=== PATIENT | female | born 1955 | race Caucasian/White ===

== ENCOUNTER 2020-08-13 17:32 | Emergency (ER) | payer OTHER ==
--- NOTE | 2020-08-13 18:28 | ER Document Report ---
ED Medical Screen (RME) - General Chief Complaint: Cough Stated Complaint: COUGH,DIARRHEA Time Seen by Provider: 08/13/20 18:25 TRAVEL OUTSIDE OF THE [place] IN LAST 30 DAYS: No - HPI Notes: 08/13/20 18:27 64-year-old female with a history of diabetes presents to the emergency room for complaints of shakes and diarrhea. On Sunday, August 09, 2020, she did test positive for Covid. Patient reports she has had weakness shakes, denies any chest pain shortness of breath nausea or vomiting. Denies any melena. Decreased eating but drinking without any issues. Denies any rashes. I have greeted and performed a rapid initial assessment of this patient. A comprehensive ED assessment and evaluation of the patient, analysis of test results and completion of the medical decision making process will be conducted by additional ED providers. PHYSICAL EXAMINATION: GENERAL: Well-appearing, well-nourished and in no acute distress. NECK: Normal range of motion CV: s1, s2 regular LUNGS: Diminished breath sounds in lobes The patient was evaluated during a global COVID-19 pandemic and that diagnosis was suspected/considered upon their initial presentation. Their evaluation, treatment and testing was consistent with current guidelines for patients who present with complaints or symptoms and may be related to COVID-19. - Related Data Allergies/Adverse Reactions: latex Allergy (Verified 07/04/17 23:30) morphine Allergy (Verified 07/04/17 23:30) Past Medical History Endocrine Medical History: Reports: Hx Diabetes Mellitus Type 1 Renal/ Medical History: Denies: Hx Peritoneal Dialysis Past Surgical History: Reports: Hx Bowel Surgery, Hx Orthopedic Surgery - shoulder,knee - Immunizations Hx Diphtheria, Pertussis, Tetanus Vaccination: Yes Physical Exam - Vital signs Vitals: Temp Pulse Resp BP Pulse Ox 100.1 F 103 H 20 132/75 H 93 08/13/20 17:54 08/13/20 17:54 08/13/20 17:54 08/13/20 17:54 08/13/20 17:54 Course - Vital Signs Vital signs: Temp Pulse Resp BP Pulse Ox 100.1 F 103 H 20 132/75 H 93 08/13/20 17:54 08/13/20 17:54 08/13/20 17:54 08/13/20 17:54 08/13/20 17:54
--- NOTE | 2020-08-13 19:54 | RADIOLOGY REPORT (SQ) ---
EXAM DESCRIPTION: CHEST SINGLE VIEW IMAGES COMPLETED DATE/TIME: 08/13/2020 6:34 pm REASON FOR STUDY: +COVID, cough COMPARISON: 08/09/2020 EXAM PARAMETERS: NUMBER OF VIEWS: One view. TECHNIQUE: Single frontal radiographic view of the chest acquired. RADIATION DOSE: NA LIMITATIONS: None. FINDINGS: LUNGS AND PLEURA: There is patchy opacification predominantly in the right lung. There is mild opacification in the retrocardiac area on the left. MEDIASTINUM AND HILAR STRUCTURES: No masses. Contour normal. HEART AND VASCULAR STRUCTURES: Heart normal in size. Normal vasculature. BONES: No acute findings. HARDWARE: None in the chest. OTHER: No other significant finding. IMPRESSION: Cannot exclude an early COVID-19 pneumonia. TECHNICAL DOCUMENTATION: JOB ID: [id number] 2010 [employer]- All Rights Reserved Reading location - IP/workstation name: [email or web address]
[2020-08-13 21:17] LABS: ABSOLUTE MONOCYTES (AUTO) 0.6 10^3/uL (0.1-1.4); ABSOLUTE NEUT (AUTO) 6.6 10^3/uL (1.7-8.2); BASOPHILS % (AUTO) 0.3 % (0-2); HEMATOCRIT 39.1 % (36.0-47.0); HEMOGLOBIN 13.2 g/dL (12.0-15.5); LYMPHOCYTES % (AUTO) 21.9 % (13-45); MEAN CORPUSCULAR HGB CONC 33.8 g/dL (32.0-36.0); MEAN CORPUSCULAR VOLUME 86 fl (80-97); MONOCYTES % (AUTO) 6.5 % (3-13); PLATELET COUNT 247 10^3/uL (150-450); RED BLOOD COUNT 4.55 10^6/uL (3.72-5.28); RED CELL DISTRIBUTION WIDTH 13.8 % (11.5-14.0); SEGMENTED NEUTROPHILS % (AUTO) 71.3 % (42-78); TOTAL CELLS COUNTED % (AUTO) 100 %; WHITE BLOOD COUNT 9.3 10^3/uL (4.0-10.5)
[2020-08-13 21:34] LABS: ALBUMIN 3.8 g/dL (3.5-5.0); ALKALINE PHOSPHATASE 97 U/L (38-126); ANION GAP 11 (5-19); ASPARTATE AMINO TRANSFERASE 64 U/L (14-36); BILIRUBIN,DIRECT 0.2 mg/dL (0.0-0.4); BILIRUBIN,TOTAL 0.4 mg/dL (0.2-1.3); BLOOD UREA NITROGEN 30 mg/dL (7-20); CALCIUM 9.2 mg/dL (8.4-10.2); CARBON DIOXIDE 22 mmol/L (22-30); CHLORIDE 98 mmol/L (98-107); GLUCOSE 226 mg/dL (75-110); POTASSIUM 4.8 mmol/L (3.6-5.0); TOTAL PROTEIN 7.7 g/dL (6.3-8.2)
[2020-08-13] MEDS ORDERED: NORMAL SALINE 1000 ML 1,000 ML IV ONE (21:41)
[2020-08-13] MEDS ORDERED: DEXAMETHASONE SOD PHOS INJ 10 MG/1 ML VIAL IV ONE (21:54)
[2020-08-13] MEDS ORDERED: BENZONATATE 100 MG CAPSULE PO ONE (21:55)
[2020-08-13] MEDS ORDERED: AZITHROMYCIN 250 MG TABLET PO ONE (21:55)
[2020-08-13] MEDS ORDERED: AMOXICILLIN TR/POT CLAVULANATE 875-125 MG TAB PO ONE (21:55)
--- NOTE | 2020-08-13 21:56 | ER Document Report ---
ED General - General Chief Complaint: Shortness Of Breath Stated Complaint: COUGH,DIARRHEA Time Seen by Provider: 08/13/20 18:25 Mode of Arrival: Ambulatory Information source: Patient Notes: This is a 64-year-old female presenting to the emergency department concern for cough, weakness, shakiness and persistent diarrhea. She tested positive for Covid on 08/09/2020. She denies any fever, chills chest pain, shortness of breath, nausea, vomiting. She does report a history of hypertension, diabetes and previous acute kidney injury. TRAVEL OUTSIDE OF THE [place] IN LAST 30 DAYS: No - Related Data Allergies/Adverse Reactions: latex Allergy (Verified 07/04/17 23:30) morphine Allergy (Verified 07/04/17 23:30) Past Medical History - General Information source: Patient - Social History Smoking Status: Never Smoker Chew tobacco use (# tins/day): No Frequency of alcohol use: None Drug Abuse: None Family History: Reviewed & Not Pertinent - Past Medical History Cardiac Medical History: Reports: Hx Hypertension Endocrine Medical History: Reports: Hx Diabetes Mellitus Type 1 Renal/ Medical History: Denies: Hx Peritoneal Dialysis Past Surgical History: Reports: Hx Bowel Surgery, Hx Orthopedic Surgery - shoulder,knee - Immunizations Hx Diphtheria, Pertussis, Tetanus Vaccination: Yes Review of Systems - Review of Systems -: Yes All other systems reviewed and negative - See HPI Physical Exam - Vital signs Vitals: Temp Pulse Resp BP Pulse Ox 100.1 F 103 H 20 132/75 H 93 08/13/20 17:54 08/13/20 17:54 08/13/20 17:54 08/13/20 17:54 08/13/20 17:54 - Notes Notes: PHYSICAL EXAMINATION: GENERAL: Well-appearing, well-nourished and in no acute distress. HEAD: Atraumatic, normocephalic. EYES: Pupils equal round and reactive to light, extraocular movements intact, conjunctiva are normal. ENT: Nares patent, oropharynx clear without exudates. Moist mucous membranes. NECK: Normal range of motion, supple without lymphadenopathy LUNGS: Breath sounds clear to auscultation bilaterally and equal. No wheezes rales or rhonchi. Cough noted HEART: Regular rate and rhythm without murmurs ABDOMEN: Soft, nontender, nondistended abdomen. No guarding, no rebound. No masses appreciated. Female : deferred Musculoskeletal: Normal range of motion, no pitting or edema. No cyanosis. NEUROLOGICAL: Cranial nerves grossly intact. Normal speech, normal gait. Normal sensory, motor exams PSYCH: Normal mood, normal affect. SKIN: Warm, Dry, normal turgor, no rashes or lesions noted. Course - Re-evaluation Re-evalutation: Patient appears well, nontoxic, she does have an elevated creatinine today. Please see labs. Patient does report a history of elevated creatinine in the past, she was given IV fluids here in the emergency department. She would like to try to avoid admission if possible, we will give her additional fluids and recheck a chemistry. Otherwise patient's work-up today has been reassuring. She is Covid positive. Chest x-ray does show a potential developing pneumonia. She will be started on medications for this. - Vital Signs Vital signs: Temp Pulse Resp BP Pulse Ox 98.6 F 103 H 21 H 127/63 H 94 08/14/20 02:03 08/13/20 17:54 08/14/20 02:03 08/14/20 02:03 08/13/20 22:21 - Laboratory Results Result Diagrams: 08/13/20 20:40 08/14/20 00:34 Laboratory Results Interpreted: 08/13/20 08/13/20 08/14/20 20:40 20:43 00:34 Sodium 131.0 L 132.2 L Carbon Dioxide 18 L BUN 30 H 30 H Creatinine 1.78 H 1.73 H Est GFR ( Amer) 35 L 36 L Est GFR (MDRD) Non-Af 29 L 30 L Glucose 226 H 250 H POC Glucose 214 H AST 64 H ALT 37 H Critical Laboratory Results Reviewed: No Critical Results - Radiology Results Critical Radiology Results Reviewed: No Critical Results Discharge - Discharge Clinical Impression: COVID-19, Elevated serum creatinine Pneumonia Qualifiers: Pneumonia type: due to unspecified organism Laterality: unspecified laterality Lung location: unspecified part of lung Qualified Code(s): J18.9 - Pneumonia, unspecified organism Condition: Stable Disposition: HOME, SELF-CARE Additional Instructions: If you were prescribed medications during today's visit please take them exactly as prescribed. Push fluids. Get plenty of rest. Tylenol or Motrin for fever and body aches. Good handwashing and stay away from others. Continue to follow the guidance of the health department regarding your Covid status. Return to the emergency department with any new or worsening symptoms such as difficulty breathing, or any other worsening symptoms. Prescriptions: Benzonatate [Tessalon Perles 100 mg Capsule] 1 - 2 tab PO Q8HP PRN #30 capsule PRN Reason: Amoxicillin/Potassium Clav [Augmentin 875-125 Tablet] 1 tab PO Q12 #14 tablet Azithromycin [Zithromax 250 mg Tablet] 250 mg PO DAILY #4 tablet
[2020-08-14 01:29] LABS: ANION GAP 11 (5-19); BLOOD UREA NITROGEN 30 mg/dL (7-20); CALCIUM 8.4 mg/dL (8.4-10.2); CARBON DIOXIDE 18 mmol/L (22-30); CHLORIDE 103 mmol/L (98-107); GLUCOSE 250 mg/dL (75-110); POTASSIUM 4.7 mmol/L (3.6-5.0)
[2020-08-14 02:07] VITALS: BP 127/63
== END 2020-08-14 02:11 | disposition home or self-care (01) ==
LOC: ER 17:32
DX: U07.1 COVID-19 (principal); J18.9 Pneumonia, unspecified organism; R05 Cough; R53.1 Weakness; R19.7 Diarrhea, unspecified; I10 Essential (primary) hypertension; R79.89 Other specified abnormal findings of blood chemistry; E10.9 Type 1 diabetes mellitus without complications; Z91.041 Radiographic dye allergy status; Z88.6 Allergy status to analgesic agent; Z88.5 Allergy status to narcotic agent
CPT/HCPCS: 99284; 96361; 96374; 36415; 82962; 85025; 80053; 71045; A9270 ×2; J7030; J1100; J3490

== ENCOUNTER 2020-08-19 11:59 | Inpatient (IN) | payer MEDICARE ==
[2020-08-19 14:20] LABS: ABSOLUTE BASOPHILS # (AUTO) 0.1 10^3/uL (0.0-0.2); ABSOLUTE EOSINOPHILS # (AUTO) 0.1 10^3/uL (0.0-0.6); ABSOLUTE LYMPHOCYTES (AUTO) 1.1 10^3/uL (0.5-4.7); ABSOLUTE MONOCYTES (AUTO) 0.7 10^3/uL (0.1-1.4); ABSOLUTE NEUT (AUTO) 7.2 10^3/uL (1.7-8.2); BASOPHILS % (AUTO) 0.7 % (0-2); EOSINOPHILS % (AUTO) 0.6 % (0-6); HEMATOCRIT 34.1 % (36.0-47.0); HEMOGLOBIN 11.4 g/dL (12.0-15.5); LYMPHOCYTES % (AUTO) 12.5 % (13-45); MEAN CORPUSCULAR HEMOGLOBIN 28.4 pg (27.0-33.4); MEAN CORPUSCULAR HGB CONC 33.4 g/dL (32.0-36.0); MEAN CORPUSCULAR VOLUME 85 fl (80-97); PLATELET COUNT 428 10^3/uL (150-450); RED BLOOD COUNT 4.01 10^6/uL (3.72-5.28); SEGMENTED NEUTROPHILS % (AUTO) 78.2 % (42-78); TOTAL CELLS COUNTED % (AUTO) 100 %; WHITE BLOOD COUNT 9.2 10^3/uL (4.0-10.5)
--- NOTE | 2020-08-19 14:24 | RADIOLOGY REPORT (SQ) ---
EXAM DESCRIPTION: CHEST SINGLE VIEW IMAGES COMPLETED DATE/TIME: 08/19/2020 2:14 pm REASON FOR STUDY: sob, hypoxia COMPARISON: PA view of the chest from 08/13/2020. EXAM PARAMETERS: NUMBER OF VIEWS: One view. TECHNIQUE: An AP view of the chest was obtained. RADIATION DOSE: NA LIMITATIONS: None. FINDINGS: LUNGS AND PLEURA: Increased asymmetric patchy parenchymal opacities in a peripheral distri bution. MEDIASTINUM AND HILAR STRUCTURES: No mediastinal or hilar contour abnormality. HEART AND VASCULAR STRUCTURES: The cardiac silhouette is within normal limits given the low inspirato ry lung volumes. BONES: No acute findings. HARDWARE: None in the chest. OTHER: No other finding. IMPRESSION: Increased asymmetric patchy parenchymal opacities in a peripheral distribution - correla te for a worsening multifocal pneumonia. TECHNICAL DOCUMENTATION: JOB ID: [id number] 2010 [employer]- All Rights Reserved Reading location - IP/workstation name: [email or web address]
--- NOTE | 2020-08-19 14:57 | ER Document Report ---
ED Respiratory Problem - General Chief Complaint: Shortness Of Breath Stated Complaint: SHORT OF BREATH Time Seen by Provider: 08/19/20 12:38 TRAVEL OUTSIDE OF THE [place] IN LAST 30 DAYS: No - HPI Notes: Patient is a 65-year-old female who presents with shortness of breath. Patient was in the ER on August 10 and had a positive Covid test. She returned to the ER on August 13 for worsening shortness of breath. She was given dexamethasone. She was discharged with Augmentin and Azithromycin. She states she still has several days left. Patient states that the [facility] told her that she would be cleared of Covid on August 16. Over the last several days, she has had worsening shortness of breath. She denies any chest pain. She states she has felt febrile. She had some diarrhea that resolved. No nausea or vomiting currently. She denies any loss of taste or smell. Was found to be 88% on room air in the lobby today and brought back to the room immediately. She is on 2 L nasal cannula oxygen and doing well. - Related Data Allergies/Adverse Reactions: latex Allergy (Verified 07/04/17 23:30) morphine Allergy (Verified 07/04/17 23:30) Past Medical History - General Information source: Patient - Social History Smoking Status: Never Smoker Frequency of alcohol use: None Drug Abuse: None Family History: Reviewed & Not Pertinent - Past Medical History Cardiac Medical History: Reports: Hx Hypertension Endocrine Medical History: Reports: Hx Diabetes Mellitus Type 1 Renal/ Medical History: Denies: Hx Peritoneal Dialysis Past Surgical History: Reports: Hx Bowel Surgery, Hx Orthopedic Surgery - shoulder,knee - Immunizations Hx Diphtheria, Pertussis, Tetanus Vaccination: Yes Review of Systems - Review of Systems Notes: CONSTITUTIONAL: No fever, fatigue or weight loss. SKIN: No rash. HENT: No congestion, ear pain, or sore throat. CARDIOVASCULAR: No chest pain or edema. RESPIRATORY: Positive for cough, shortness of breath. GASTROINTESTINAL: No abdominal pain, nausea, vomiting. Positive for diarrhea. MUSCULOSKELETAL: No joint pain or swelling. NEUROLOGIC: No seizures. No headache, focal weakness or sensory changes. HEMATOLOGIC: No unusual bruising or bleeding. PSYCHIATRIC: No depression or anxiety. Physical Exam - Vital signs Vitals: Temp Pulse Resp BP Pulse Ox 98.1 F 110 H 24 H 133/58 H 88 L 08/19/20 00:31 08/19/20 00:31 08/19/20 00:31 08/19/20 00:31 08/19/20 00:31 - General General appearance: Appears well Notes: VITAL SIGNS: Within normal limits on 2L of O2 nasal cannula. GENERAL: No acute distress, non-toxic appearance. HEAD: Normal with no signs of head trauma. EYES: Conjunctiva normal, no discharge. EARS: Hearing grossly intact. NECK: Normal range of motion, no tenderness, supple, no lymphadenopathy, No adenopathy, no JVD. CHEST: Clear breath sounds bilaterally. CARDIAC: Regular rate and rhythm. S1 and S2, without murmurs, gallops, or rubs. VASCULAR: No Edema. ABDOMEN: Normal and soft with no tenderness, no masses or pulsatile masses. LYMPATHTIC: No lymphadenopathy noted. MUSCULOSKELETAL: Good range of motion of all major joints. Extremities without clubbing, cyanosis or edema. NEUROLOGICAL: Alert and oriented x 3. No focal sensory or strength deficits. Speech normal. Follows commands appropriately. PSYCHIATRIC: Normal Affect, judgement and mood. SKIN: Normal appearance with no rashes or lesions. Course - Re-evaluation Re-evalutation: 08/19/20 21:33 Patient has a chest x-ray with worsening bilateral infiltrates. She is already on antibiotics. She is now on nasal cannula and doing well. I did give her dexamethasone and Rocephin. She states she already finished the azithromycin. I discussed with the hospitalist for admission. - Vital Signs Vital signs: Temp Pulse Resp BP Pulse Ox 98.4 F 83 16 127/63 H 97 08/19/20 19:49 08/19/20 20:15 08/19/20 19:49 08/19/20 19:49 08/19/20 19:49 - Laboratory Results Result Diagrams: 08/19/20 14:00 08/19/20 17:17 Laboratory Results Interpreted: 08/19/20 08/19/20 08/19/20 14:00 16:30 17:17 Hgb 11.4 L Hct 34.1 L Lymph % (Auto) 12.5 L Seg Neutrophils % 78.2 H Sodium 132.8 L BUN 23 H Est GFR ( Amer) 57 L Est GFR (MDRD) Non-Af 47 L Glucose 266 H Ferritin AST 44 H ALT 37 H C-Reactive Protein Albumin 3.2 L Urine Protein 30 H Urine Glucose (UA) >=500 H Urine Blood SMALL H 08/19/20 17:17 Hgb Hct Lymph % (Auto) Seg Neutrophils % Sodium BUN Est GFR ( Amer) Est GFR (MDRD) Non-Af Glucose Ferritin 389.00 H AST ALT C-Reactive Protein 69.1 H Albumin Urine Protein Urine Glucose (UA) Urine Blood Critical Laboratory Results Reviewed: No Critical Results - Radiology Results Critical Radiology Results Reviewed: No Critical Results - EKG Interpretation by Me EKG shows normal: Sinus rhythm Rate: Normal Rhythm: NSR When compared to previous EKG there are: No significant change Additional EKG results interpreted by me: 08/19/20 15:02 Sinus rhythm at a rate of 91. QTc 453. No acute ST changes. EKG is similar to previous. Discharge - Discharge Clinical Impression: COVID-19 Pneumonia Qualifiers: Pneumonia type: due to unspecified organism Laterality: bilateral Lung location: lower lobe of lung Qualified Code(s): J18.9 - Pneumonia, unspecified organism Acute respiratory failure Qualifiers: Respiratory failure complication: hypoxia Qualified Code(s): J96.01 - Acute respiratory failure with hypoxia Condition: Stable Disposition: ADMITTED INPATIENT Admitting Provider: Ramez (Hospitalist) Unit Admitted: [facility]
[2020-08-19] MEDS ORDERED: CEFTRIAXONE 1 GM/D5W RTU 1 GM/50 ML RTUPB IV ONE (15:01)
[2020-08-19] MEDS ORDERED: DEXAMETHASONE SOD PHOS INJ 10 MG/1 ML VIAL IV ONE (15:01)
[2020-08-19 17:07] LABS: APPEARANCE,URINE SLIGHTLY-CLOUDY; BILIRUBIN,URINE NEGATIVE (NEGATIVE); COLOR,URINE YELLOW; GLUCOSE, URINE >=500 mg/dL (NEGATIVE); KETONES,URINE NEGATIVE (NEGATIVE); LEUKOCYTE ESTERASE,URINE NEGATIVE (NEGATIVE); NITRITE,URINE NEGATIVE (NEGATIVE); PROTEIN,URINE 30 mg/dL (NEGATIVE); URINE SPECIFIC GRAVITY 1.014; UROBILINOGEN,URINE NEGATIVE mg/dL (<2.0)
--- NOTE | 2020-08-19 17:36 | EKG REPORT ---
SEVERITY:- ABNORMAL ECG - SINUS RHYTHM ABNRM R PROG, DUE TO ERROR IN LEAD PLACEMENT : Confirmed by: Bright Back MD 19-Aug-2020 17:36:22
[2020-08-19 17:43] LABS: ALBUMIN 3.2 g/dL (3.5-5.0); ALKALINE PHOSPHATASE 89 U/L (38-126); ANION GAP 10 (5-19); ASPARTATE AMINO TRANSFERASE 44 U/L (14-36); BILIRUBIN,DIRECT 0.3 mg/dL (0.0-0.4); BILIRUBIN,TOTAL 0.6 mg/dL (0.2-1.3); BLOOD UREA NITROGEN 23 mg/dL (7-20); CALCIUM 8.9 mg/dL (8.4-10.2); CARBON DIOXIDE 22 mmol/L (22-30); CHLORIDE 101 mmol/L (98-107); GLUCOSE 266 mg/dL (75-110); POTASSIUM 4.7 mmol/L (3.6-5.0); TOTAL PROTEIN 6.8 g/dL (6.3-8.2)
[2020-08-19] MEDS ORDERED: ACETAMINOPHEN 325 MG TABLET PO PRN (17:47)
[2020-08-19] MEDS ORDERED: DEXTROSE 50%-WATER 25 GM/50 ML DISP.SYRIN IV PRN ×2 (17:47)
[2020-08-19] MEDS ORDERED: DEXTROSE 40% GEL 15 GM TUBE PO PRN ×2 (17:47)
[2020-08-19] MEDS ORDERED: ONDANSETRON HCL INJ/PF 4 MG/2 ML SDV IV PRN (17:47)
[2020-08-19] MEDS ORDERED: GLUCAGON,HUMAN RECOMB 1 MG INJ IM PRN (17:47)
[2020-08-19 18:16] LABS: C-REACTIVE PROTEIN 69.1 mg/L (<10.0)
--- NOTE | 2020-08-19 18:16 | PDOC H&P ---
History of Present Illness History of Present Illness: MAUDE ZHENG is a 65 year old female who lives in [place] who is here visiting family. She has a history of [id number] diabetes mellitus, obesity, and hypertension. She initially took presented to the ER here on 09 August 2020 with a complaint of 3 days of fever, fatigue, and malaise. She was tested for coronavirus and the test was positive. She said that her daughter and grandson both had it. She was sent home on azithromycin and said it did not do her any good. She started getting short of breath a couple of days ago. She has had 2 ER visits, one on the and one on the , and was not hypoxic at either of those visits. Today when she came in complaining of shortness of breath her SPO2 was 88% on room air. She had bibasilar patchy opacities in the lung bases on chest x-ray. She had crackles on examination. On her prior visits her creatinine was elevated but it has improved today. Past Medical History Cardiac Medical History: Reports: Hypertension Endocrine Medical History: Reports: Diabetes Mellitus Type 1 Past Surgical History Past Surgical History: Reports: Orthopedic Surgery - shoulder,knee Social History Smoking Status: Never Smoker Family History Family History: Reviewed & Not Pertinent, Hypertension Parental Family History Reviewed: Yes Children Family History Reviewed: Yes Sibling(s) Family History Reviewed.: Yes Medication/Allergy Home Medications: Amox Tr/Potassium Clavulanate [Augmentin 875-125 Tablet] 1 tab PO BID #20 tablet 08/19/16 Fluticasone Propionate [Flonase Nasal Radcliffe 50 Mcg/Radcliffe 16 gm] 2 sprays NASL Q12 #1 inhaler 08/19/16 Phenylephrine HCl/Cod/Prometh [Phenergan Vc-Codeine Syrup] 5 - 10 ml PO Q4H #120 ml 08/19/16 Hydrocodone/Acetaminophen [Hydrocodon-Acetaminophen 5-325] 1 each PO Q6 #20 tablet 07/05/17 Amoxicillin/Potassium Clav [Augmentin 875-125 Tablet] 1 tab PO Q12 #14 tablet 08/14/20 Azithromycin [Zithromax 250 mg Tablet] 250 mg PO DAILY #4 tablet 08/14/20 Benzonatate [Tessalon Perles 100 mg Capsule] 1 - 2 tab PO Q8HP PRN #30 capsule 08/14/20 Allergies/Adverse Reactions: latex Allergy (Verified 07/04/17 23:30) morphine Allergy (Verified 07/04/17 23:30) Review of Systems All systems: reviewed and no additional remarkable complaints except as stated - All systems were reviewed and were negative except as noted in the HPI Physical Exam Vital Signs: Temp Pulse Resp BP Pulse Ox 98.1 F 110 H 21 H 135/69 H 95 08/19/20 00:31 08/19/20 00:31 08/19/20 15:01 08/19/20 15:01 08/19/20 15:01 Intake & Output 08/18/20 08/19/20 08/20/20 06:59 06:59 06:59 Intake Total 50 Balance 50 Weight 103 kg General appearance: PRESENT: no acute distress, cooperative, disheveled, obese Head exam: PRESENT: atraumatic, normocephalic Eye exam: PRESENT: EOMI, PERRLA. ABSENT: conjunctival injection, nystagmus, scleral icterus Ear exam: PRESENT: normal external ear exam Mouth exam: PRESENT: dry mucosa, neck supple Throat exam: ABSENT: post pharyngeal erythema Neck exam: PRESENT: full ROM. ABSENT: carotid bruit, JVD, lymphadenopathy, meningismus, tenderness, thyromegaly Respiratory exam: PRESENT: crackles, symmetrical, unlabored. ABSENT: accessory muscle use, chest wall tenderness, prolonged expiratory phas, rhonchi, tachypnea, wheezes Cardiovascular exam: PRESENT: RRR, +S1, +S2 Pulses: PRESENT: normal carotid pulses Vascular exam: PRESENT: normal capillary refill GI/Abdominal exam: PRESENT: normal bowel sounds, soft. ABSENT: distended, guarding, rebound, tenderness Extremities exam: ABSENT: clubbing, pedal edema Musculoskeletal exam: PRESENT: normal inspection. ABSENT: deformity Neurological exam: PRESENT: alert, awake, oriented to person, oriented to place, oriented to time, oriented to situation, CN II-XII grossly intact. ABSENT: motor sensory deficit Psychiatric exam: PRESENT: appropriate affect, normal mood Skin exam: PRESENT: dry, warm Results Laboratory Results: 08/19/20 14:00 08/19/20 17:17 08/19/20 08/19/20 08/19/20 14:00 14:00 16:30 WBC 9.2 RBC 4.01 Hgb 11.4 L Hct 34.1 L MCV 85 MCH 28.4 MCHC 33.4 RDW 14.0 Plt Count 428 Seg Neutrophils % 78.2 H Sodium Cancelled Potassium Cancelled Chloride Cancelled Carbon Dioxide Cancelled Anion Gap Cancelled BUN Cancelled Creatinine Cancelled Est GFR ( Amer) Cancelled Est GFR (Non-Af Amer) Cancelled Glucose Cancelled Lactic Acid Calcium Cancelled Total Bilirubin Cancelled AST Cancelled Alkaline Phosphatase Cancelled Total Protein Cancelled Albumin Cancelled Urine Color YELLOW Urine Appearance SLIGHTLY-CLOUDY Urine pH 5.0 Ur Specific Rattan 1.014 Urine Protein 30 H Urine Glucose (UA) >=500 H Urine Ketones NEGATIVE Urine Blood SMALL H Urine Nitrite NEGATIVE Ur Leukocyte Esterase NEGATIVE Urine WBC (Auto) 2 Urine RBC (Auto) 1 08/19/20 08/19/20 17:17 17:17 WBC RBC Hgb Hct MCV MCH MCHC RDW Plt Count Seg Neutrophils % Sodium 132.8 L Potassium 4.7 Chloride 101 Carbon Dioxide 22 Anion Gap 10 BUN 23 H Creatinine 1.17 Est GFR ( Amer) 57 L Est GFR (Non-Af Amer) Glucose 266 H Lactic Acid 1.2 Calcium 8.9 Total Bilirubin 0.6 AST 44 H Alkaline Phosphatase 89 Total Protein 6.8 Albumin 3.2 L Urine Color Urine Appearance Urine pH Ur Specific Rattan Urine Protein Urine Glucose (UA) Urine Ketones Urine Blood Urine Nitrite Ur Leukocyte Esterase Urine WBC (Auto) Urine RBC (Auto) 08/19/20 08/19/20 14:00 17:17 Troponin I Cancelled < 0.012 Impressions: Chest X-Ray 08/19/20 13:53 IMPRESSION: Increased asymmetric patchy parenchymal opacities in a peripheral distribution - correlate for a worsening multifocal pneumonia. Assessment and Plan - Diagnosis (1) Acute hypoxemic respiratory failure Is this a current diagnosis for this admission?: Yes (2) Pneumonia due to COVID-19 virus Is this a current diagnosis for this admission?: Yes (3) Type 2 diabetes mellitus Qualifiers: Diabetes mellitus half-way insulin use: without half-way use Diabetes mellitus complication status: without complication Qualified Code(s): E11.9 - Type 2 diabetes mellitus without complications Is this a current diagnosis for this admission?: Yes (4) Hypertension Qualifiers: Hypertension type: essential hypertension Qualified Code(s): I10 - Essential (primary) hypertension Is this a current diagnosis for this admission?: Yes (5) Obesity (BMI 30-39.9) Is this a current diagnosis for this admission?: Yes - Plan Summary Summary: Patient has been sick now for 14 or 15 days. She is past the point at which rem desivir could help her. We will treat her with the MATH+ protocol, which consists of IV Solu-Medrol, ivermectin, vitamin B complex, vitamin C, vitamin D3, zinc, melatonin, and doxycycline. Currently stable on 2 L per nasal cannula. Will titrate oxygen to maintain SPO2 greater than 90%, and we were able to wean as tolerated. We will cover her with a sliding scale for now. She had previously had an acute kidney injury but this seems like it has resolved prior to admission. We will hold her antihypertensives for now, and will reinstitute once we are sure her blood pressure will tolerate it. - Time Time Spent with patient: 35 or more minutes Anticipated Discharge Disposition: Unknown Anticipated Discharge Timeframe: Unknown - Inpatient Certification Based on my medical assessment, after consideration of the patient's comorbidities, presenting symptoms, or acuity I expect that the services needed warrant INPATIENT care.: Yes I certify that my determination is in accordance with my understanding of Medicare's requirements for reasonable and necessary INPATIENT services [42 CFR 412.3e].: Yes Medical Necessity: Failure to Improve With Outpatient Therapy, Significant Comorbidiites Make Outpatient Treatment Too Risky, Need Close Monitoring Due to Risk of Patient Decompensation, Need For Continuous Telemetry Monitoring, Need for IV Antibiotics, Risk of Complication if Not Cared For in Hospital
[2020-08-19] MEDS: ASCORBIC ACID 500 MG TABLET PO SCH (18:28)
[2020-08-19] MEDS: NORMAL SALINE 1000 ML 1,000 ML IV PRN (18:29)
[2020-08-19] MEDS ORDERED: IVERMECTIN 3 MG TABLET PO ONE (18:30)
[2020-08-19] MEDS: INSULIN LISPRO 100 UNIT/ML 3 ML VIAL SUBCUT SCH (22:19)
[2020-08-19] MEDS: HEPARIN SOD (PORCINE) 5,000 UNIT/ML 1 ML VIAL SUBCUT SCH (22:19)
[2020-08-19] MEDS: METHYLPREDNISOLONE INJ 40 MG/1 ML SDV IV SCH (22:20)
[2020-08-19] MEDS: MELATONIN 5 MG TABLET PO SCH (22:20)
[2020-08-19] MEDS: DOXYCYCLINE HYCLATE 100 MG in DEXTROSE 5%-WATER 250 ML IV SCH (22:21)
[2020-08-20] MEDS: ASCORBIC ACID 500 MG TABLET PO SCH ×5 (00:49→23:49)
[2020-08-20] MEDS: HEPARIN SOD (PORCINE) 5,000 UNIT/ML 1 ML VIAL SUBCUT SCH ×3 (05:03→21:42)
[2020-08-20] MEDS: NORMAL SALINE 1000 ML 1,000 ML IV PRN ×2 (06:28→21:43)
[2020-08-20 06:48] LABS: ABSOLUTE LYMPHOCYTES (AUTO) 0.8 10^3/uL (0.5-4.7); ABSOLUTE MONOCYTES (AUTO) 0.2 10^3/uL (0.1-1.4); BASOPHILS % (AUTO) 0.2 % (0-2); HEMATOCRIT 35.4 % (36.0-47.0); HEMOGLOBIN 11.7 g/dL (12.0-15.5); LYMPHOCYTES % (AUTO) 13.8 % (13-45); MEAN CORPUSCULAR HEMOGLOBIN 28.1 pg (27.0-33.4); MEAN CORPUSCULAR HGB CONC 33.1 g/dL (32.0-36.0); MEAN CORPUSCULAR VOLUME 85 fl (80-97); MONOCYTES % (AUTO) 3.1 % (3-13); PLATELET COUNT 407 10^3/uL (150-450); RED BLOOD COUNT 4.18 10^6/uL (3.72-5.28); RED CELL DISTRIBUTION WIDTH 13.8 % (11.5-14.0); SEGMENTED NEUTROPHILS % (AUTO) 82.9 % (42-78); TOTAL CELLS COUNTED % (AUTO) 100 %
[2020-08-20 07:15] LABS: ALBUMIN 3.2 g/dL (3.5-5.0); ALKALINE PHOSPHATASE 92 U/L (38-126); ANION GAP 13 (5-19); ASPARTATE AMINO TRANSFERASE 29 U/L (14-36); BILIRUBIN,DIRECT 0.4 mg/dL (0.0-0.4); BILIRUBIN,TOTAL 0.5 mg/dL (0.2-1.3); BLOOD UREA NITROGEN 27 mg/dL (7-20); CALCIUM 9.5 mg/dL (8.4-10.2); CARBON DIOXIDE 20 mmol/L (22-30); CHLORIDE 102 mmol/L (98-107); GLUCOSE 335 mg/dL (75-110); TOTAL PROTEIN 6.9 g/dL (6.3-8.2)
[2020-08-20 07:25] LABS: C-REACTIVE PROTEIN 55.8 mg/L (<10.0)
[2020-08-20 08:20] LABS: POTASSIUM 5.6 mmol/L (3.6-5.0)
[2020-08-20] MEDS: INSULIN LISPRO 100 UNIT/ML 3 ML VIAL SUBCUT SCH ×6 (08:45→21:43)
[2020-08-20] MEDS: CHOLECALCIFEROL (D3) 1,000 UNIT (25 MCG) TABLET PO SCH (10:31)
[2020-08-20] MEDS: ZINC SULFATE 220 MG CAPSULE PO SCH (10:31)
[2020-08-20] MEDS: DOXYCYCLINE HYCLATE 100 MG in DEXTROSE 5%-WATER 250 ML IV SCH ×2 (10:31→21:41)
[2020-08-20] MEDS: VITAMIN B COMPLEX TABLET PO SCH (10:31)
[2020-08-20] MEDS: METHYLPREDNISOLONE INJ 40 MG/1 ML SDV IV SCH ×2 (10:31→21:42)
--- NOTE | 2020-08-20 15:12 | PDOC PROGRESS REPORT ---
Subjective Date:: 08/20/20 Subjective:: No adverse events overnight. Still on 2 L, but she says her breathing feels a l ot better. Blood sugars have been elevated as anticipated. Reason For Visit: ACUTE HYPOXIC RESPIRATORY FAILURE, COVID-19 Physical Exam Vital Signs: Temp Pulse Resp BP Pulse Ox 97.4 F 86 17 125/64 94 08/20/20 11:32 08/20/20 11:32 08/20/20 11:32 08/20/20 11:32 08/20/20 11:32 Intake & Output 08/19/20 08/20/20 08/21/20 06:59 06:59 06:59 Intake Total 1719 Output Total 550 Balance 1169 Weight 103 kg 97.2 kg General appearance: PRESENT: no acute distress, cooperative, disheveled, obese Respiratory exam: PRESENT: crackles, symmetrical, unlabored. ABSENT: accessory muscle use, chest wall tenderness, prolonged expiratory phas, rhonchi, tachypnea, wheezes Cardiovascular exam: PRESENT: RRR, +S1, +S2 Pulses: PRESENT: normal carotid pulses Vascular exam: PRESENT: normal capillary refill GI/Abdominal exam: PRESENT: normal bowel sounds, soft. ABSENT: distended, guarding, rebound, tenderness Extremities exam: ABSENT: clubbing, pedal edema Musculoskeletal exam: PRESENT: normal inspection. ABSENT: deformity Neurological exam: PRESENT: alert, awake, oriented to person, oriented to place, oriented to time, oriented to situation Psychiatric exam: PRESENT: appropriate affect, normal mood Skin exam: PRESENT: dry, warm Results Laboratory Results: 08/20/20 05:31 08/20/20 05:31 08/19/20 08/19/20 08/19/20 16:30 17:17 17:17 WBC RBC Hgb Hct MCV MCH MCHC RDW Plt Count Seg Neutrophils % Sodium 132.8 L Potassium 4.7 Chloride 101 Carbon Dioxide 22 Anion Gap 10 BUN 23 H Creatinine 1.17 Est GFR ( Amer) 57 L Glucose 266 H Lactic Acid 1.2 Calcium 8.9 Ferritin Total Bilirubin 0.6 AST 44 H Alkaline Phosphatase 89 C-Reactive Protein Total Protein 6.8 Albumin 3.2 L Urine Color YELLOW Urine Appearance SLIGHTLY-CLOUDY Urine pH 5.0 Ur Specific [place] 1.014 Urine Protein 30 H Urine Glucose (UA) >=500 H Urine Ketones NEGATIVE Urine Blood SMALL H Urine Nitrite NEGATIVE Ur Leukocyte Esterase NEGATIVE Urine WBC (Auto) 2 Urine RBC (Auto) 1 08/19/20 08/20/20 08/20/20 17:17 05:31 05:31 WBC 6.0 RBC 4.18 Hgb 11.7 L Hct 35.4 L MCV 85 MCH 28.1 MCHC 33.1 RDW 13.8 Plt Count 407 Seg Neutrophils % 82.9 H Sodium 134.6 L Potassium 5.6 H Chloride 102 Carbon Dioxide 20 L Anion Gap 13 BUN 27 H Creatinine 1.23 Est GFR ( Amer) 53 L Glucose 335 H Lactic Acid Calcium 9.5 Ferritin 389.00 H 352.00 H Total Bilirubin 0.5 AST 29 Alkaline Phosphatase 92 C-Reactive Protein 69.1 H 55.8 H Total Protein 6.9 Albumin 3.2 L Urine Color Urine Appearance Urine pH Ur Specific [place] Urine Protein Urine Glucose (UA) Urine Ketones Urine Blood Urine Nitrite Ur Leukocyte Esterase Urine WBC (Auto) Urine RBC (Auto) 08/19/20 08/19/20 14:00 17:17 Troponin I Cancelled < 0.012 Impressions: Chest X-Ray 08/19/20 13:53 IMPRESSION: Increased asymmetric patchy parenchymal opacities in a peripheral distribution - correlate for a worsening multifocal pneumonia. Assessment and Plan - Diagnosis (1) Acute hypoxemic respiratory failure Is this a current diagnosis for this admission?: Yes (2) Pneumonia due to COVID-19 virus Is this a current diagnosis for this admission?: Yes (3) Type 2 diabetes mellitus Qualifiers: Diabetes mellitus long filler cigar roller machine insulin use: without long filler cigar roller machine use Diabetes mellitus complication status: without complication Qualified Code(s): E11.9 - Type 2 diabetes mellitus without complications Is this a current diagnosis for this admission?: Yes (4) Hypertension Qualifiers: Hypertension type: essential hypertension Qualified Code(s): I10 - Essential (primary) hypertension Is this a current diagnosis for this admission?: Yes (5) Obesity (BMI 30-39.9) Is this a current diagnosis for this admission?: Yes - Plan Summary Summary: We will treat her with the MATH+ protocol, which consists of IV Solu-Medrol, ivermectin, vitamin B complex, vitamin C, vitamin D3, zinc, melatonin, and doxycycline. Currently stable on 2 L per nasal cannula. Will titrate oxygen to maintain SPO2 greater than 90%, then wean as tolerated. I have added a fixed bolus premeal to her sliding scale. I will likely have to increase it further. Blood pressures have been very good without the need to start her home antihypertensives. - Time Time Spent with patient: 15-24 minutes Anticipated Discharge Disposition: Home, Self Care Anticipated Discharge Timeframe: within 72 hours
[2020-08-20] MEDS ORDERED: INSULIN LISPRO 100 UNIT/ML 3 ML VIAL SUBCUT ONE (17:00)
[2020-08-20] MEDS: MELATONIN 5 MG TABLET PO SCH (21:43)
[2020-08-21 06:37] LABS: ABSOLUTE LYMPHOCYTES (AUTO) 1.2 10^3/uL (0.5-4.7); ABSOLUTE MONOCYTES (AUTO) 0.3 10^3/uL (0.1-1.4); ABSOLUTE NEUT (AUTO) 10.5 10^3/uL (1.7-8.2); BASOPHILS % (AUTO) 0.1 % (0-2); HEMATOCRIT 33.8 % (36.0-47.0); LYMPHOCYTES % (AUTO) 9.8 % (13-45); MEAN CORPUSCULAR HEMOGLOBIN 27.8 pg (27.0-33.4); MEAN CORPUSCULAR HGB CONC 32.6 g/dL (32.0-36.0); MEAN CORPUSCULAR VOLUME 85 fl (80-97); MONOCYTES % (AUTO) 2.9 % (3-13); PLATELET COUNT 447 10^3/uL (150-450); RED BLOOD COUNT 3.97 10^6/uL (3.72-5.28); RED CELL DISTRIBUTION WIDTH 13.7 % (11.5-14.0); SEGMENTED NEUTROPHILS % (AUTO) 87.2 % (42-78); TOTAL CELLS COUNTED % (AUTO) 100 %
[2020-08-21] MEDS: HEPARIN SOD (PORCINE) 5,000 UNIT/ML 1 ML VIAL SUBCUT SCH ×3 (06:39→22:19)
[2020-08-21] MEDS: ASCORBIC ACID 500 MG TABLET PO SCH ×4 (06:40→23:28)
[2020-08-21 06:43] LABS: WHITE BLOOD COUNT 12.1 10^3/uL (4.0-10.5)
[2020-08-21 06:56] LABS: ALKALINE PHOSPHATASE 80 U/L (38-126); ANION GAP 9 (5-19); ASPARTATE AMINO TRANSFERASE 40 U/L (14-36); BILIRUBIN,DIRECT 0.4 mg/dL (0.0-0.4); BILIRUBIN,TOTAL 0.5 mg/dL (0.2-1.3); BLOOD UREA NITROGEN 34 mg/dL (7-20); C-REACTIVE PROTEIN 31.8 mg/L (<10.0); CALCIUM 9.5 mg/dL (8.4-10.2); CARBON DIOXIDE 20 mmol/L (22-30); CHLORIDE 105 mmol/L (98-107); GLUCOSE 319 mg/dL (75-110); TOTAL PROTEIN 6.6 g/dL (6.3-8.2)
[2020-08-21 07:02] LABS: POTASSIUM 6.1 mmol/L (3.6-5.0)
[2020-08-21] MEDS: METHYLPREDNISOLONE INJ 40 MG/1 ML SDV IV SCH (09:59)
[2020-08-21] MEDS: CHOLECALCIFEROL (D3) 1,000 UNIT (25 MCG) TABLET PO SCH (09:59)
[2020-08-21] MEDS: ZINC SULFATE 220 MG CAPSULE PO SCH (09:59)
[2020-08-21] MEDS: VITAMIN B COMPLEX TABLET PO SCH (10:00)
[2020-08-21] MEDS: INSULIN LISPRO 100 UNIT/ML 3 ML VIAL SUBCUT SCH ×7 (10:00→22:20)
[2020-08-21] MEDS ORDERED: IVERMECTIN 3 MG TABLET PO ONE (10:00)
[2020-08-21] MEDS: DOXYCYCLINE HYCLATE 100 MG in DEXTROSE 5%-WATER 250 ML IV SCH ×2 (10:01→22:21)
--- NOTE | 2020-08-21 15:01 | PDOC PROGRESS REPORT ---
Subjective Date:: 08/21/20 Subjective:: No adverse events overnight. No new complaints. She is on room air and her oxy genation shows an SPO2 in the upper 90s. She feels very comfortable. She has been getting up and moving about the room without any trouble. Blood sugars have remained difficult to control, and her potassium has been climbing. Reason For Visit: ACUTE HYPOXIC RESPIRATORY FAILURE, COVID-19 Physical Exam Vital Signs: Temp Pulse Resp BP Pulse Ox 98.2 F 74 17 120/61 94 08/21/20 11:15 08/21/20 11:15 08/21/20 11:15 08/21/20 11:15 08/21/20 11:15 Intake & Output 08/20/20 08/21/20 08/22/20 06:59 06:59 06:59 Intake Total 1719 2126 475 Output Total 550 501 Balance 1169 1625 475 Weight 97.2 kg 95.1 kg General appearance: PRESENT: no acute distress, cooperative, disheveled, obese Respiratory exam: PRESENT: Clear to auscultation bilaterally, symmetrical, unlabored. ABSENT: accessory muscle use, chest wall tenderness, prolonged expiratory phas, rhonchi, tachypnea, wheezes Cardiovascular exam: PRESENT: RRR, +S1, +S2 Pulses: PRESENT: normal carotid pulses Vascular exam: PRESENT: normal capillary refill GI/Abdominal exam: PRESENT: normal bowel sounds, soft. ABSENT: distended, guarding, rebound, tenderness Extremities exam: ABSENT: clubbing, pedal edema Musculoskeletal exam: PRESENT: normal inspection. ABSENT: deformity Neurological exam: PRESENT: alert, awake, oriented to person, oriented to place, oriented to time, oriented to situation Psychiatric exam: PRESENT: appropriate affect, normal mood Skin exam: PRESENT: dry, warm Results Laboratory Results: 08/21/20 05:49 08/21/20 05:49 08/21/20 08/21/20 05:49 05:49 WBC 12.1 H D RBC 3.97 Hgb 11.0 L Hct 33.8 L MCV 85 MCH 27.8 MCHC 32.6 RDW 13.7 Plt Count 447 Seg Neutrophils % 87.2 H Sodium 134.4 L Potassium 6.1 H* Chloride 105 Carbon Dioxide 20 L Anion Gap 9 BUN 34 H Creatinine 1.26 H Est GFR ( Amer) 52 L Glucose 319 H Calcium 9.5 Ferritin 282.00 H Total Bilirubin 0.5 AST 40 H Alkaline Phosphatase 80 C-Reactive Protein 31.8 H Total Protein 6.6 Albumin 3.0 L 08/19/20 14:00 Throat Throat Culture - Final NORMAL ESTUARDO 08/19/20 08/19/20 14:00 17:17 Troponin I Cancelled < 0.012 Impressions: Chest X-Ray 08/19/20 13:53 IMPRESSION: Increased asymmetric patchy parenchymal opacities in a peripheral distribution - correlate for a worsening multifocal pneumonia. Assessment and Plan - Diagnosis (1) Acute hypoxemic respiratory failure Is this a current diagnosis for this admission?: Yes (2) Pneumonia due to COVID-19 virus Is this a current diagnosis for this admission?: Yes (3) Type 2 diabetes mellitus Qualifiers: Diabetes mellitus exterminator termite insulin use: without exterminator termite use Diabetes mellitus complication status: without complication Qualified Code(s): E11.9 - Type 2 diabetes mellitus without complications Is this a current diagnosis for this admission?: Yes (4) Hypertension Qualifiers: Hypertension type: essential hypertension Qualified Code(s): I10 - Essential (primary) hypertension Is this a current diagnosis for this admission?: Yes (5) Obesity (BMI 30-39.9) Is this a current diagnosis for this admission?: Yes - Plan Summary Summary: We will continue with the MATH+ protocol, which consists of IV Solu-Medrol, ivermectin, vitamin B complex, vitamin C, vitamin D3, zinc, melatonin, and doxycycline. Currently stable on room air. I have added a fixed bolus premeal to her sliding scale, blood sugars remain elevated. I have deescalated her steroids today in the hopes that this will help with her blood sugar control. Blood pressures have been very good without the need to start her home antihypertensives. Her creatinine has gone back up a little bit, and I am wondering if the result we got when she first came in was spuriously low and this is actually closer to her baseline. We have been giving her IV fluids. She is not on any exogenous potassium. I think her uncontrolled diabetes may have something to do with this. I have given her a dose of patiromer, in addition to the other measures that can help with her glucose control. Repeating a potassium this evening. - Time Time Spent with patient: 15-24 minutes Anticipated Discharge Disposition: Home, Self Care Anticipated Discharge Timeframe: within 24 hours
[2020-08-21] MEDS ORDERED: PATIROMER 8.4 GM SUSP PACKET PO SCH (17:00)
[2020-08-21] MEDS: NORMAL SALINE 1000 ML 1,000 ML IV PRN (17:42)
[2020-08-21] MEDS: MELATONIN 5 MG TABLET PO SCH (22:19)
[2020-08-22] MEDS: HEPARIN SOD (PORCINE) 5,000 UNIT/ML 1 ML VIAL SUBCUT SCH (06:10)
[2020-08-22] MEDS: ASCORBIC ACID 500 MG TABLET PO SCH (06:10)
[2020-08-22 06:18] LABS: ABSOLUTE LYMPHOCYTES (AUTO) 2.4 10^3/uL (0.5-4.7); ABSOLUTE MONOCYTES (AUTO) 0.7 10^3/uL (0.1-1.4); ABSOLUTE NEUT (AUTO) 5.7 10^3/uL (1.7-8.2); BASOPHILS % (AUTO) 0.2 % (0-2); EOSINOPHILS % (AUTO) 0.1 % (0-6); HEMOGLOBIN 11.1 g/dL (12.0-15.5); LYMPHOCYTES % (AUTO) 26.8 % (13-45); MEAN CORPUSCULAR HEMOGLOBIN 27.9 pg (27.0-33.4); MEAN CORPUSCULAR HGB CONC 33.7 g/dL (32.0-36.0); MEAN CORPUSCULAR VOLUME 83 fl (80-97); MONOCYTES % (AUTO) 8.1 % (3-13); PLATELET COUNT 442 10^3/uL (150-450); RED BLOOD COUNT 3.98 10^6/uL (3.72-5.28); RED CELL DISTRIBUTION WIDTH 13.6 % (11.5-14.0); SEGMENTED NEUTROPHILS % (AUTO) 64.8 % (42-78); TOTAL CELLS COUNTED % (AUTO) 100 %; WHITE BLOOD COUNT 8.8 10^3/uL (4.0-10.5)
[2020-08-22 06:37] LABS: ALBUMIN 2.9 g/dL (3.5-5.0); ALKALINE PHOSPHATASE 79 U/L (38-126); ANION GAP 6 (5-19); ASPARTATE AMINO TRANSFERASE 64 U/L (14-36); BILIRUBIN,DIRECT 0.3 mg/dL (0.0-0.4); BILIRUBIN,TOTAL 0.5 mg/dL (0.2-1.3); BLOOD UREA NITROGEN 33 mg/dL (7-20); C-REACTIVE PROTEIN 20.2 mg/L (<10.0); CALCIUM 9.5 mg/dL (8.4-10.2); CARBON DIOXIDE 22 mmol/L (22-30); CHLORIDE 108 mmol/L (98-107); GLUCOSE 184 mg/dL (75-110); POTASSIUM 5.1 mmol/L (3.6-5.0); TOTAL PROTEIN 6.5 g/dL (6.3-8.2)
[2020-08-22 07:55] VITALS: BP 139/71
[2020-08-22] MEDS ORDERED: SODIUM POLYSTYRENE SULFONATE 15 GM/60 ML PO ONE (09:45)
[2020-08-22] MEDS ORDERED: PREDNISONE 20 MG TABLET PO SCH (10:00)
--- NOTE | 2020-08-22 10:01 | PDOC DISCHARGE SUMMARY ---
Impression - Admit/DC Date/PCP Admission Date/Primary Care Provider: 08/19/20 17:53 ERVIN TYSON MD Discharge Date: 08/22/20 - Discharge Diagnosis (1) Acute hypoxemic respiratory failure Is this a current diagnosis for this admission?: Yes (2) COVID-19 Is this a current diagnosis for this admission?: Yes (3) Type 2 diabetes mellitus Is this a current diagnosis for this admission?: Yes - Assessment Summary: Patient was admitted for COVID -19 pneumonia with hypxia. She was treated with the MATH+ protocol, which consists of IV Solu-Medrol, ivermectin (day #1 and #3), vitamin B complex, vitamin C, vitamin D3, zinc, melatonin, and doxycycline. She has been currently stable on room air for 24h. Due to worsening of her renal function her BG was managed by insulin and metformin was discontinued. She was treated for hyperkalemia with patiromer, and since it did not reduce her K; kayexalate x1 was added. She is given a script to recheck her BMP in 3 days. Case management to assist with supplies for home, she declines HH services. - Additional Information Resuscitation Status: Full Code Discharge Diet: Diabetic Discharge Activity: Activity As Tolerated Referrals: ERVIN TYSON MD [Primary Care Provider] - 08/28/20 Prescriptions: Albuterol Sulfate [Albuterol Sulfate Hfa] 18 gm IH 6XD #1 hfa.aer.ad Doxycycline Hyclate 100 mg PO BID #20 tablet. Prednisone 10 mg PO BID 8 Days #15 tablet Zinc Sulfate [Zinc-220 Capsule] 220 mg PO DAILY 30 Days #30 capsule Home Medications: Fluoxetine HCl [Prozac] 40 mg PO QAM 08/19/20 Fluticasone Propionate [Flonase Allergy Relief] 2 puff PO DAILY 08/19/20 Glimepiride [Amaryl] 3 mg PO DAILY 08/19/20 Liraglutide [Victoza 2-Marino] 1.8 mg SQ DAILY 08/19/20 Lisinopril [Prinivil] 20 mg PO DAILY 08/19/20 Oxybutynin Chloride [Oxybutynin Chloride ER] 10 mg PO DAILY 08/19/20 Pravastatin Sodium 20 mg PO DAILY 08/19/20 Albuterol Sulfate [Albuterol Sulfate Hfa] 18 gm IH 6XD #1 hfa.aer.ad 08/22/20 Ascorbic Acid [Vitamin C 500 mg Tablet] 1,000 mg PO Q6 tablet 08/22/20 Cholecalciferol (Vitamin D3) [Vitamin D3 1000 Unit Tablet] 2,000 unit PO DAILY tablet 08/22/20 Doxycycline Hyclate 100 mg PO BID #20 tablet.dr 08/22/20 Melatonin [Melatonin 5 mg Tablet] 10 mg PO QHS #0 tablet 08/22/20 Prednisone 10 mg PO BID 8 Days #15 tablet 08/22/20 Vitamin B Complex [Vitamin B Complex Tablet] 1 tab PO DAILY tablet 08/22/20 Zinc Sulfate [Zinc-220 Capsule] 220 mg PO DAILY 30 Days #30 capsule 08/22/20 History of Present Illiness History of Present Illness: MAUDE ZHENG is a 65 year old female Physical Exam Vital Signs: Temp Pulse Resp BP Pulse Ox 98.4 F 77 16 139/71 H 91 L 08/22/20 08:13 08/22/20 07:20 08/22/20 07:20 08/22/20 07:20 08/22/20 07:20 Intake & Output 08/21/20 08/22/20 08/23/20 06:59 06:59 06:59 Intake Total 2126 2134 Output Total 501 Balance 1625 2134 Weight 95.1 kg 98.8 kg General appearance: PRESENT: no acute distress Mouth exam: PRESENT: moist Respiratory exam: PRESENT: clear to auscultation bereket. ABSENT: accessory muscle use, chest wall tenderness, crackles Cardiovascular exam: PRESENT: RRR. ABSENT: rubs, systolic murmur Results Laboratory Results: WBC 8.8 10^3/uL (4.0-10.5) 08/22/20 05:49 RBC 3.98 10^6/uL (3.72-5.28) 08/22/20 05:49 Hgb 11.1 g/dL (12.0-15.5) L 08/22/20 05:49 Hct 33.0 % (36.0-47.0) L 08/22/20 05:49 MCV 83 fl (80-97) 08/22/20 05:49 MCH 27.9 pg (27.0-33.4) 08/22/20 05:49 MCHC 33.7 g/dL (32.0-36.0) 08/22/20 05:49 RDW 13.6 % (11.5-14.0) 08/22/20 05:49 Plt Count 442 10^3/uL (150-450) 08/22/20 05:49 Lymph % (Auto) 26.8 % (13-45) 08/22/20 05:49 [place] % (Auto) 8.1 % (3-13) 08/22/20 05:49 Eos % (Auto) 0.1 % (0-6) 08/22/20 05:49 Baso % (Auto) 0.2 % (0-2) 08/22/20 05:49 Absolute Neuts (auto) 5.7 10^3/uL (1.7-8.2) 08/22/20 05:49 Absolute Lymphs (auto) 2.4 10^3/uL (0.5-4.7) 08/22/20 05:49 Absolute Monos (auto) 0.7 10^3/uL (0.1-1.4) 08/22/20 05:49 Absolute Eos (auto) 0.0 10^3/uL (0.0-0.6) 08/22/20 05:49 Absolute Basos (auto) 0.0 10^3/uL (0.0-0.2) 08/22/20 05:49 Seg Neutrophils % 64.8 % (42-78) 08/22/20 05:49 Sodium 136.0 mmol/L (137-145) L 08/22/20 05:49 Potassium 5.1 mmol/L (3.6-5.0) H 08/22/20 05:49 Chloride 108 mmol/L (98-107) H 08/22/20 05:49 Carbon Dioxide 22 mmol/L (22-30) 08/22/20 05:49 Anion Gap 6 (5-19) 08/22/20 05:49 BUN 33 mg/dL (7-20) H 08/22/20 05:49 Creatinine 1.31 mg/dL (0.52-1.25) H 08/22/20 05:49 Est GFR ( Amer) 50 (>60) L 08/22/20 05:49 Est GFR (Non-Af Amer) Cancelled 08/19/20 14:00 Est GFR (MDRD) Non-Af 41 (>60) L 08/22/20 05:49 Glucose 184 mg/dL (75-110) H 08/22/20 05:49 POC Glucose 183 mg/dL (70-110) H 08/22/20 07:18 Lactic Acid 1.2 mmol/L (0.7-2.1) 08/19/20 17:17 Calcium 9.5 mg/dL (8.4-10.2) 08/22/20 05:49 Ferritin 266.00 ng/mL (11.1-264.0) H 08/22/20 05:49 Total Bilirubin 0.5 mg/dL (0.2-1.3) 08/22/20 05:49 Direct Bilirubin 0.3 mg/dL (0.0-0.4) 08/22/20 05:49 Neonat Total Bilirubin Not Reportable 08/22/20 05:49 Neonat Direct Bilirubin Not Reportable 08/22/20 05:49 Neonat Indirect Bili Not Reportable 08/22/20 05:49 AST 64 U/L (14-36) H 08/22/20 05:49 ALT 63 U/L (<35) H 08/22/20 05:49 Alkaline Phosphatase 79 U/L (38-126) 08/22/20 05:49 Troponin I < 0.012 ng/mL 08/19/20 17:17 C-Reactive Protein 20.2 mg/L (<10.0) H 08/22/20 05:49 Total Protein 6.5 g/dL (6.3-8.2) 08/22/20 05:49 Albumin 2.9 g/dL (3.5-5.0) L 08/22/20 05:49 EGFR Cancelled 08/19/20 14:00 Urine Color YELLOW 08/19/20 16:30 Urine Appearance SLIGHTLY-CLOUDY 08/19/20 16:30 Urine pH 5.0 (5.0-9.0) 08/19/20 16:30 Ur Specific [place] 1.014 08/19/20 16:30 Urine Protein 30 mg/dL (NEGATIVE) H 08/19/20 16:30 Urine Glucose (UA) >=500 mg/dL (NEGATIVE) H 08/19/20 16:30 Urine Ketones NEGATIVE mg/dL (NEGATIVE) 08/19/20 16:30 Urine Blood SMALL (NEGATIVE) H 08/19/20 16:30 Urine Nitrite NEGATIVE (NEGATIVE) 08/19/20 16:30 Urine Bilirubin NEGATIVE (NEGATIVE) 08/19/20 16:30 Urine Urobilinogen NEGATIVE mg/dL (<2.0) 08/19/20 16:30 Ur Leukocyte Esterase NEGATIVE (NEGATIVE) 08/19/20 16:30 Urine WBC (Auto) 2 /HPF 08/19/20 16:30 Urine RBC (Auto) 1 /HPF 08/19/20 16:30 Urine Bacteria (Auto) TRACE /HPF 08/19/20 16:30 Squamous Epi Cells Auto 1 /HPF 08/19/20 16:30 Urine Mucus (Auto) RARE /LPF 08/19/20 16:30 Urine Ascorbic Acid NEGATIVE (NEGATIVE) 08/19/20 16:30 COVID-19 Source Cancelled 08/19/20 14:00 COVID-19 (KANDIS) Cancelled 08/19/20 14:00 Influenza A (RT-PCR) NEGATIVE (NEGATIVE) 08/19/20 14:00 Influenza B (RT-PCR) NEGATIVE (NEGATIVE) 08/19/20 14:00 RSV (RT-PCR) NEGATIVE (NEGATIVE) 08/19/20 14:00 SARS-CoV-2 Rap RNA(RT-PCR) NEGATIVE (NEGATIVE) 08/19/20 14:00 Group A Strep Rapid NEGATIVE (NEGATIVE) 08/19/20 14:00 08/19/20 08/19/20 14:00 17:17 Troponin I Cancelled < 0.012 Impressions: Chest X-Ray 08/19/20 13:53 IMPRESSION: Increased asymmetric patchy parenchymal opacities in a peripheral distribution - correlate for a worsening multifocal pneumonia. Plan Time Spent: Greater than 30 Minutes Stroke Is this a Stroke Patient?: No Acute Heart Failure Is this a Heart Failure Patient?: No
[2020-08-22] MEDS: INSULIN LISPRO 100 UNIT/ML 3 ML VIAL SUBCUT SCH ×2 (10:09→10:10)
[2020-08-22] MEDS: VITAMIN B COMPLEX TABLET PO SCH (10:10)
[2020-08-22] MEDS: ZINC SULFATE 220 MG CAPSULE PO SCH (10:10)
[2020-08-22] MEDS: CHOLECALCIFEROL (D3) 1,000 UNIT (25 MCG) TABLET PO SCH (10:11)
[2020-08-22] MEDS: DOXYCYCLINE HYCLATE 100 MG in DEXTROSE 5%-WATER 250 ML IV SCH (10:11)
== END 2020-08-22 11:37 | disposition home or self-care (01) | DRG 177 ==
LOC: ER 11:59 → EH 17:53 → 3S 19:32 → 3W 19:52
PROVIDERS: ADMIT Family Medicine; ATTEND Family Medicine
DX: U07.1 COVID-19 (principal); J12.89 Other viral pneumonia; J96.21 Acute and chronic respiratory failure with hypoxia; I10 Essential (primary) hypertension; E66.9 Obesity, unspecified; E11.9 Type 2 diabetes mellitus without complications; E87.5 Hyperkalemia; Z79.899 Other long term (current) drug therapy; Z79.84 Long term (current) use of oral hypoglycemic drugs; Z82.49 Family history of ischemic heart disease and other diseases of the circulatory system; Z91.040 Latex allergy status
CPT/HCPCS: 36415; 71045; 80053; 81001; 82728; 82962; 83605; 84132; 84484; 85025; 86140; 87040; 87070; 87880; 93005; 93010; 96365; 96375; 99285; 0241U; C9803; J0696; J1100; J1644; J1815; J2920; J3490; J7030; J7060; J7512